=== PATIENT | male | born 1985 | race Caucasian/White ===

== ENCOUNTER 2016-03-30 14:00 | Emergency (ER) | payer OTHER ==
[~2016-03-30] VITALS: Ht 180.3 cm; Wt 84.9 kg
[~2016-03-30 14:00] MED LIST: SOVALDI PO; [UNRECOGNIZED DRUG - CODE] PO
[2016-03-30 14:06] VITALS: BP 135/83; PULSE 95; RESP 16; TEMP 98.7; O2SAT 98
[2016-03-30] MEDS ORDERED: CYCL1TAB29 PO (14:20)
[2016-03-30] MEDS ORDERED: IBUP800T23 PO (14:20)
--- NOTE | 2016-03-30 14:20 | PD ---
HPI Chief Complaint: Back/ Neck Pain or Injury Time Seen by Provider: 14:16 Travel History International Travel<30 days: No Contact w/Intl Traveler<30days: No Traveled to known affect area: No History of Present Illness HPI Patient is a 31-year-old male presented to emergency department for evaluation of mid right back pain that is ongoing since last Tuesday. Patient states he picked up a heavy saw at work, injuring his back. It improved on its own however today he did the same thing reinjuring it. He denies any numbness or weakness in his upper or lower extremities. No bladder or bowel incontinence, no saddle paresthesia. Patient is not taking anything to alleviate the pain. Patient states he presented to the emergency department because of mother told him to. Patient states the pain is a 4 out of 10. PFSH Past Medical History Medical History: Denies Significant Hx Diminished Hearing: No Influenza Vaccination: No ?: Not Social History Alcohol Use: No Tobacco Use: Yes Allergies-Medications (Allergen,Severity, Reaction): Coded Allergies: No Known Allergies (Unverified , 03/30/16) Reported Meds & Prescriptions Reported Meds & Active Scripts Active Reported Rebetol 200 mg (RIBAVIRIN (HEPATITIS C) 200 mg) 200 Mg Cap 2 Cap PO DAILY [sovaldi] 400 Mg PO DAILY Review of Systems Except as stated in HPI: all other systems reviewed are Neg Musculoskeletal: Positive: Myalgias, Cramping Physical Exam Narrative GENERAL: Well-nourished, well-developed patient. SKIN: Warm and dry. HEAD: Normocephalic. EYES: No scleral icterus. No injection or drainage. NECK: Supple, trachea midline. No JVD or lymphadenopathy. CARDIOVASCULAR: Regular rate and rhythm without murmurs, gallops, or rubs. RESPIRATORY: Breath sounds equal bilaterally. No accessory muscle use. GASTROINTESTINAL: Abdomen soft, non-tender, nondistended. MUSCULOSKELETAL: No cyanosis, or edema. Tenderness to palpation paraspinal musculature on the right in the thoracic region. No spinal tenderness noted in the cervical, thoracic, or lumbar spine. 5/5 muscle strength in all 4 extremities.. BACK: Nontender without obvious deformity. No CVA tenderness. Data Data Last Documented VS Vital Signs Date Time Temp Pulse Resp B/P Pulse Ox O2 Delivery O2 Flow Rate FiO2 03/30/16 14:06 98.7 95 16 135/83 98 [facility] Medical Decision Making Medical Screen Exam Complete: Yes Emergency Medical Condition: Yes Interpretation(s) Vital Signs Date Time Temp Pulse Resp B/P Pulse Ox O2 Delivery O2 Flow Rate FiO2 03/30/16 14:06 98.7 95 16 135/83 98 Differential Diagnosis Sprain versus strain versus spasm versus discogenic pain versus other Narrative Course Patient is a 31-year-old male who presents emergency for evaluation of back pain that started a week ago while lifting at work. Symptoms improved on their own without any treatment however he did the same thing again today. Patient is neurologically intact, physical examination is most consistent with a muscle strain, spasm. Patient be given prescription for ibuprofen and Lexapro. He is encouraged to apply warm moist heat to affected area, continue range of motion exercises and avoid bed rest. Patient is encouraged to maintain safe lifting techniques. He is encouraged follow-up with primary care return to emergency department for any new or worsening symptoms. Patient verbalized understanding of instructions. Patient stable for discharge. Diagnosis Primary Impression: Muscle strain Additional Impression: Muscle spasm Referrals: Primary Care Physician Patient Instructions: General Instructions, Muscle Spasm (ED), Muscle Strain ( ED) Additional Instructions: Apply warm moist heat to affected area, continue range of motion exercises, avoid exacerbating activities Take medications as directed, consistently for the next 24-48 hours and then as needed Follow-up with your primary doctor Return to emergency department for any new or worsening symptoms Med/Other Pt SpecificInfo: Prescription(s) given Scripts Cyclobenzaprine (Flexeril)10 Mg Tab10 Mg PO TID PRN (MUSCLE SPASM) 7 Days Ref 0 Prov:Lachelle Resendiz 03/30/16 Ibuprofen 800 Mg [id number] Mg PO Q6HR PRN (PAIN) #40 TAB Ref 0 Prov:Lachelle Resendiz 03/30/16 Disposition: 01 DISCHARGE HOME Condition: Stable Lachelle Resendiz Mar 30, 2016 14:20
== END 2016-03-30 14:39 | disposition home or self-care (01) ==
LOC: PHEFT 14:00
DX: S29.012A Strain of muscle and tendon of back wall of thorax, initial encounter (principal); M62.838 Other muscle spasm; X50.0XXA Overexertion from strenuous movement or load, initial encounter
CPT/HCPCS: 99283